=== PATIENT | male | born 1930 | race Caucasian/White ===

== ENCOUNTER 2017-02-28 20:01 | Inpatient (IN) | payer OTHER ==
[~2017-02-28] VITALS: Ht 182.9 cm; Wt 79.5 kg
[2017-02-28 20:24] LABS: HEMATOCRIT 39.6 % (38.0-50.0); MCH 31.6 PG (29.0-34.0); MCHC 33.3 G/DL (30.0-36.0); MCV 94.7 FL (86-99); RBC DIS.WIDTH-CV 12.4 % (11.8-14.6); RBC DIS.WIDTH-SD 43.3 % (39-53); RED BLOOD COUNT 4.18 M/uL (4.00-5.50); WHITE BLOOD COUNT 15.9 K/uL (4.1-10.2)
[2017-02-28 20:36] LABS: CHLORIDE 103 mEq/L (99-109); POTASSIUM 4.4 mEq/L (3.7-5.4); SODIUM 138 mEq/L (136-147)
[2017-02-28 20:38] LABS: GLUCOSE 136 mg/dL (70-99)
[2017-02-28 20:39] LABS: ANION GAP 9 MEQ/L (2-14)
[2017-02-28 20:42] LABS: ALKALINE PHOSPHATASE 78 IU/L (3-129); GFR ESTIMATE (CALCULATED) > 59 mL/min/
[2017-02-28 20:43] LABS: UREA NITROGEN (BUN) 18 mg/dL (9-23)
[2017-02-28 20:45] LABS: LIPASE 15 U/L (1.0-51.0)
[2017-02-28 21:15] LABS: HEMATOLOGY COMMENT 1 SN; PLATELET COUNT UNABLE TO REPORT K/uL (156-360)
[2017-02-28 22:51] LABS: ADD MIUA? YES; BILIRUBIN NEGATIVE; BLOOD NEGATIVE; COLOR YELLOW ((YELLOW)); GLUCOSE (STRIP) NEGATIVE; KETONES 20; LEUKOCYTES SMALL; NITRITE NEGATIVE; PROTEIN (STRIP) NEGATIVE; UROBILINOGEN 0.2 MG/DL (0.2-1.0)
[2017-02-28 22:58] LABS: BACTERIA NONE SEEN /HPF; EPITHELIAL CELLS RARE /HPF; MUCUS NONE SEEN /LPF; RED BLOOD CELLS 0-5 /HPF (0-5); UCUL ADDED? YES
[2017-02-28 23:02] LABS: SPECIFIC GRAVITY 1.065 (1.000-1.030)
[2017-02-28] MEDS ORDERED: VITAMIN D31000 UNI2 PO (23:44)
[2017-02-28] MEDS ORDERED: GABAPENTIN100 MG PO (23:44)
[2017-02-28] MEDS ORDERED: B-12500 MC1 SL (23:45)
[2017-02-28] MEDS ORDERED: NIGHT TIME COL1 EACH PO (23:45)
[2017-02-28] MEDS ORDERED: LITE COAT ASPI325 M1 PO (23:45)
[2017-03-01] VITALS (8 sets, daily range): BP systolic 112–147; BP diastolic 64–76
[2017-03-01 06:15] LABS: MCHC 33.2 G/DL (30.0-36.0); MCV 96.4 FL (86-99); MEAN PLAT.VOLUME 11.8 uM^3 (9.0-12.4); PLATELET COUNT 247 K/uL (156-360); RBC DIS.WIDTH-CV 12.8 % (11.8-14.6); RBC DIS.WIDTH-SD 45.6 % (39-53); RED BLOOD COUNT 3.84 M/uL (4.00-5.50); WHITE BLOOD COUNT 17.8 K/uL (4.1-10.2)
[2017-03-01 19:24] LABS: ANION GAP 9 MEQ/L (2-14); CHLORIDE 103 MEQ/L (99-109); POTASSIUM 4.1 MEQ/L (3.7-5.4); SAMPLE HEMOLYSIS CHECK 0; SAMPLE ICTERIC CHECK 0; SAMPLE LIPEMIA CHECK 0; SODIUM 136 MEQ/L (136-147)
[2017-03-01 19:30] LABS: GFR ESTIMATE (CALCULATED) > 59 mL/min/; GLUCOSE 148 mg/dL (70-99); UREA NITROGEN (BUN) 15 mg/dL (9-23)
[2017-03-02 03:17] VITALS: BP 113/68
[2017-03-02 05:05] LABS: HEMATOCRIT 35.3 % (38.0-50.0); MCH 32.1 PG (29.0-34.0); MCHC 33.7 G/DL (30.0-36.0); MCV 95.1 FL (86-99); RBC DIS.WIDTH-CV 12.9 % (11.8-14.6); RBC DIS.WIDTH-SD 44.9 % (39-53); RED BLOOD COUNT 3.71 M/uL (4.00-5.50); WHITE BLOOD COUNT 13.4 K/uL (4.1-10.2)
[2017-03-02 05:21] LABS: CHLORIDE 106 mEq/L (99-109); POTASSIUM 4.3 mEq/L (3.7-5.4); SODIUM 141 mEq/L (136-147)
[2017-03-02 05:24] LABS: ANION GAP 8 MEQ/L (2-14)
[2017-03-02 05:26] LABS: GFR ESTIMATE (CALCULATED) > 59 mL/min/; GLUCOSE 104 mg/dL (70-99)
[2017-03-02 05:27] LABS: UREA NITROGEN (BUN) 15 mg/dL (9-23)
[2017-03-02 05:47] LABS: MEAN PLAT.VOLUME 11.4 uM^3 (9.0-12.4); PLAT.SUFFICIENCY ADEQUATE; PLATELET COUNT 219 K/uL (156-360)
[2017-03-02 07:43] VITALS: BP 111/63
[2017-03-02 12:14] VITALS: BP 116/62
[2017-03-02 16:30] VITALS: BP 123/61
[2017-03-02 19:35] VITALS: BP 117/65
[2017-03-02 23:28] VITALS: BP 130/71
[2017-03-03 03:28] VITALS: BP 134/78
[2017-03-03 06:48] LABS: HEMATOCRIT 34.8 % (38.0-50.0); MCH 32.2 PG (29.0-34.0); MCHC 33.9 G/DL (30.0-36.0); MCV 95.1 FL (86-99); MEAN PLAT.VOLUME 11.7 uM^3 (9.0-12.4); PLATELET COUNT 239 K/uL (156-360); RBC DIS.WIDTH-CV 13.1 % (11.8-14.6); RBC DIS.WIDTH-SD 45.8 % (39-53); RED BLOOD COUNT 3.66 M/uL (4.00-5.50)
[2017-03-03 07:13] LABS: ANION GAP 8 MEQ/L (2-14); CHLORIDE 105 MEQ/L (99-109); GFR ESTIMATE (CALCULATED) > 59 mL/min/; GLUCOSE 94 mg/dL (70-99); POTASSIUM 4.1 MEQ/L (3.7-5.4); SAMPLE HEMOLYSIS CHECK 0; SAMPLE ICTERIC CHECK 0; SAMPLE LIPEMIA CHECK 0; SODIUM 140 MEQ/L (136-147); UREA NITROGEN (BUN) 20 mg/dL (9-23)
[2017-03-03 07:44] VITALS: BP 155/70
[2017-03-03 11:37] VITALS: BP 130/74
[2017-03-03] MEDS ORDERED: HYDROCODON-ACE1 EAC7 PO (12:45)
[2017-03-03 16:28] VITALS: BP 132/65
== END 2017-03-03 18:35 | disposition home or self-care (01) | DRG 419 ==
LOC: EME 20:01 → EDOF 23:07 → 3EAST 23:07 → ENRESERV 23:40 → 3EAST 03-01 01:32
PROVIDERS: Surgery
DX: K80.00 Calculus of gallbladder with acute cholecystitis without obstruction (principal); Z79.82 Long term (current) use of aspirin; Z88.0 Allergy status to penicillin
CPT/HCPCS: 74177; 74300; 76705; 80048; 80048 91; 80053; 81003; 83690; 85027; 87086; 88304; 99281; 99285; C1769; J0131; J0330; J1170; J2250; J2405; J2710; J3010; J7040; J7050; S0020; S0074

== ENCOUNTER 2017-05-19 07:00 | Observation (INO) | payer OTHER ==
[~2017-05-19] VITALS: Ht 182.9 cm; Wt 78.5 kg
[~2017-05-19 07:00] MED LIST: B-12500 MC1 SL; GABAPENTIN100 MG PO; HYDROCODON-ACE1 EAC7 PO; LITE COAT ASPI325 M1 PO; NIGHT TIME COL1 EACH PO; VITAMIN D31000 UNI2 PO
[2017-05-19 07:43] LABS: EOSINOPHIL (%) 0.2 % (0-5); HEMATOCRIT 40.5 % (38.0-50.0); IMMATURE GRANULOCYTE (%) 0.2 % (0.0-0.7); INSTRUMENT ABS NEUTROPHIL CT 6.4 K/uL; LYMPHOCYTE COUNT 1.7 K/uL (1.0-2.8); MCH 31.1 PG (29.0-34.0); MCHC 32.8 G/DL (30.0-36.0); MCV 94.6 FL (86-99); MEAN PLAT.VOLUME 11.3 uM^3 (9.0-12.4); MONOCYTE (%) 9.6 % (3-12); MONOCYTE COUNT 0.9 K/uL (0-0.8); NEUTROPHIL COUNT 6.4 K/uL (1.8-6.4); PLATELET COUNT 265 K/uL (156-360); RBC DIS.WIDTH-CV 13.6 % (11.8-14.6); RED BLOOD COUNT 4.28 M/uL (4.00-5.50)
[2017-05-19 07:48] LABS: PROTHROMBIN TIME 11.8 SEC (10.2-12.9)
[2017-05-19 07:51] LABS: PTT 24.4 SEC (25-37)
[2017-05-19 08:08] LABS: TROP-I INTERPRETATION NEGATIVE; TROPONIN-I 0.18 ng/mL (0.0-0.30)
[2017-05-19 08:26] LABS: ANION GAP 15 MEQ/L (2-14); CHLORIDE 106 MEQ/L (99-109); GFR ESTIMATE (CALCULATED) > 59 mL/min/; GLUCOSE 107 mg/dL (70-99); POTASSIUM 4.2 MEQ/L (3.7-5.4); SAMPLE HEMOLYSIS CHECK 0; SAMPLE ICTERIC CHECK 0; SAMPLE LIPEMIA CHECK 0; SODIUM 144 MEQ/L (136-147); UREA NITROGEN (BUN) 21 mg/dL (9-23)
[2017-05-19 10:12] LABS: CREATINE KINASE 201 IU/L (1-294)
[2017-05-19 13:24] LABS: CHLORIDE 106 mEq/L (99-109); POTASSIUM 3.7 mEq/L (3.7-5.4); SODIUM 138 mEq/L (136-147)
[2017-05-19 13:26] LABS: GLUCOSE 105 mg/dL (70-99)
[2017-05-19 13:27] LABS: ANION GAP 8 MEQ/L (2-14)
[2017-05-19 13:30] LABS: GFR ESTIMATE (CALCULATED) > 59 mL/min/
[2017-05-19 13:31] LABS: UREA NITROGEN (BUN) 16 mg/dL (9-23)
[2017-05-19 13:36] LABS: TROP-I INTERPRETATION NEGATIVE; TROPONIN-I 0.28 ng/mL (0.0-0.30)
[2017-05-19 17:21] VITALS: BP 107/64
[2017-05-19 19:10] LABS: TROP-I INTERPRETATION INDETERMINATE; TROPONIN-I 0.31 ng/mL (0.0-0.30)
[2017-05-19 19:22] VITALS: BP 99/56
[2017-05-20 00:05] VITALS: BP 109/55
[2017-05-20 05:18] VITALS: BP 111/60
[2017-05-20 05:42] LABS: HEMATOCRIT 33.7 % (38.0-50.0); MCH 31.6 PG (29.0-34.0); MCHC 32.6 G/DL (30.0-36.0); MCV 96.8 FL (86-99); MEAN PLAT.VOLUME 11.7 uM^3 (9.0-12.4); PLATELET COUNT 228 K/uL (156-360); RED BLOOD COUNT 3.48 M/uL (4.00-5.50); WHITE BLOOD COUNT 7.4 K/uL (4.1-10.2)
[2017-05-20 06:04] LABS: HDL CHOLESTEROL 38 MG/DL (Desirable>=40); LDL CHOLESTEROL 102 mg/dL (Desirable<100); NON-HDL CHOLESTEROL 115 mg/dL (Desirable<160); TOTAL CHOLESTEROL 153 mg/dL (Desirable<200); TRIGLYCERIDES 66 MG/DL (Normal: <150)
[2017-05-20 08:22] VITALS: BP 111/66
[2017-05-20 10:25] LABS: TROP-I INTERPRETATION NEGATIVE; TROPONIN-I 0.23 ng/mL (0.0-0.30)
[2017-05-20] MEDS ORDERED: DILTIAZEM 24HR120 MG PO (12:02)
[2017-05-20] MEDS ORDERED: ELIQUIS5 MG PO (12:02)
== END 2017-05-20 14:51 | disposition home or self-care (01) ==
LOC: EME 07:00 → 4EAST 08:58 → EDOF 08:58 → 4EAST 08:58 → ENRESERV 09:02 → 4EAST 15:46 → ENPENDDIS 05-20 → 4EAST 05-20 12:00
PROVIDERS: Emergency Medicine; Hospitalist; Internal Medicine
DX: I48.0 Paroxysmal atrial fibrillation (principal); I95.9 Hypotension, unspecified; R07.9 Chest pain, unspecified; D64.9 Anemia, unspecified; E78.5 Hyperlipidemia, unspecified; G62.9 Polyneuropathy, unspecified; R91.8 Other nonspecific abnormal finding of lung field; M79.673 Pain in unspecified foot; Z79.82 Long term (current) use of aspirin; Z88.0 Allergy status to penicillin
CPT/HCPCS: 71010; 71275; 80048; 80048 91; 80061; 82550 91; 84443; 84484; 85025; 85027; 85379; 85610; 85730; 93005; 93306; 99281; 99285; G0378; J1650; J7030; J7040; J7050